=== PATIENT | female | born 1990 | race Caucasian/White ===

== ENCOUNTER 2017-02-15 06:35 | Emergency (ER) | payer MEDICAID ==
[~2017-02-15 06:35] MED LIST: ACETAMINOPHEN325 MG PO; IBUPROFEN600 MG PO; PERCOCET 10/3251 TA1 PO; PRENATAL COMPLE1 TAB PO; ZOVIRAX400 MG
== END 2017-02-15 08:05 | disposition home or self-care (01) ==
LOC: D.ER 06:35
DX: F41.9 Anxiety disorder, unspecified (principal)